=== PATIENT | female | born 1985 | race Caucasian/White ===

== ENCOUNTER 2016-03-10 07:41 | Emergency (ER) | payer OTHER ==
[~2016-03-10] VITALS: Ht 162.6 cm; Wt 91.8 kg
[~2016-03-10 07:41] MED LIST: AUGMENTIN875 MG PO; AZO CRANBERRY1 EACH PO; CIPRO500 MG PO; CRANBERRY500 M3 PO; MOTRIN800 MG PO; NORCO 5/3251 TABLET PO; PYRIDIUM100 MG PO; TORADOL10 MG PO
[2016-03-10 09:45] LABS: ADD MIUA? YES; BILIRUBIN NEGATIVE; BLOOD NEGATIVE; COLOR YELLOW ((YELLOW)); GLUCOSE (STRIP) NEGATIVE; KETONES NEGATIVE; LEUKOCYTES SMALL; NITRITE NEGATIVE; PROTEIN (STRIP) NEGATIVE; SPECIFIC GRAVITY 1.024 (1.000-1.030); UROBILINOGEN 0.2 MG/DL (0.2-1.0)
[2016-03-10 10:24] LABS: BACTERIA 1+; CASTS NONE SEEN /LPF; CRYSTALS NONE SEEN; EPITHELIAL CELLS 2+; MUCUS 2+; RED BLOOD CELLS 0-5 /HPF (0-5); UCUL ADDED? NO; WHITE BLOOD CELLS 0-5 /HPF (0-5)
[2016-03-10] MEDS ORDERED: FIORICET WI1 CAPSULE PO (10:34)
[2016-03-10 10:46] VITALS: BP 118/74
== END 2016-03-10 10:48 | disposition home or self-care (01) ==
LOC: EME 07:41
PROVIDERS: Emergency Medicine
DX: G43.909 Migraine, unspecified, not intractable, without status migrainosus (principal); F17.200 Nicotine dependence, unspecified, uncomplicated; Z87.440 Personal history of urinary (tract) infections
CPT/HCPCS: 81003; 99281; 99284; J1885; J2765; J7030

== ENCOUNTER 2016-05-29 12:20 | Emergency (ER) | payer OTHER ==
[~2016-05-29] VITALS: Ht 162.6 cm; Wt 86.0 kg
[~2016-05-29 12:20] MED LIST changes: +FIORICET WI1 CAPSULE PO
[2016-05-29 14:52] LABS: ADD MIUA? YES; BILIRUBIN NEGATIVE; BLOOD MODERATE; COLOR YELLOW ((YELLOW)); GLUCOSE (STRIP) NEGATIVE; KETONES NEGATIVE; LEUKOCYTES TRACE; NITRITE NEGATIVE; PROTEIN (STRIP) NEGATIVE; SPECIFIC GRAVITY 1.016 (1.000-1.030); UROBILINOGEN 0.2 MG/DL (0.2-1.0)
[2016-05-29 14:59] LABS: BACTERIA 2+ /HPF; EPITHELIAL CELLS RARE /HPF; MUCUS 1+ /LPF; RED BLOOD CELLS 0-5 /HPF (0-5); UCUL ADDED? YES
[2016-05-29] MEDS ORDERED: CIPRO250 MG PO (15:01)
[2016-05-29 15:14] VITALS: BP 136/94
== END 2016-05-29 15:14 | disposition home or self-care (01) ==
LOC: EME 12:20
PROVIDERS: Nurse Practitioner Family
DX: H10.9 Unspecified conjunctivitis (principal); N39.0 Urinary tract infection, site not specified; F17.200 Nicotine dependence, unspecified, uncomplicated
CPT/HCPCS: 81003; 87077; 87086; 87186; 99281; 99284

== ENCOUNTER 2016-07-14 09:55 | Emergency (ER) | payer OTHER ==
[~2016-07-14] VITALS: Ht 162.6 cm; Wt 81.5 kg
[~2016-07-14 09:55] MED LIST changes: +CIPRO250 MG PO
[2016-07-14] MEDS ORDERED: D-MANNOSE (11:05)
[2016-07-14] MEDS ORDERED: MOTRIN400 MG PO (11:06)
[2016-07-14 11:10] LABS: ADD MIUA? YES; BILIRUBIN NEGATIVE; BLOOD NEGATIVE; COLOR YELLOW ((YELLOW)); GLUCOSE (STRIP) NEGATIVE; KETONES NEGATIVE; LEUKOCYTES MODERATE; NITRITE NEGATIVE; PROTEIN (STRIP) NEGATIVE; SPECIFIC GRAVITY 1.011 (1.000-1.030); UROBILINOGEN 0.2 MG/DL (0.2-1.0)
[2016-07-14 11:36] LABS: HEMATOCRIT 43.8 % (36.0-46.0); MCH 29.7 PG (29.0-34.0); MCHC 33.1 G/DL (30.0-36.0); MCV 89.6 FL (83-99); MEAN PLAT.VOLUME 9.5 uM^3 (9.5-12.4); PLATELET COUNT 209 K/uL (156-360); RBC DIS.WIDTH-CV 13.4 % (11.8-14.6); RED BLOOD COUNT 4.89 M/uL (3.80-5.20); WHITE BLOOD COUNT 10.1 K/uL (4.1-10.2)
[2016-07-14 11:41] LABS: BACTERIA 2+ /HPF; EPITHELIAL CELLS 3+ /HPF; MUCUS 2+ /LPF; UCUL ADDED? NO; WHITE BLOOD CELLS 0-5 /HPF (0-5)
[2016-07-14 11:51] LABS: CHLORIDE 109 mEq/L (99-109); POTASSIUM 4.8 mEq/L (3.7-5.4); SODIUM 141 mEq/L (136-147)
[2016-07-14 11:52] LABS: GLUCOSE 99 mg/dL (70-99)
[2016-07-14 11:54] LABS: ANION GAP 9 MEQ/L (2-14)
[2016-07-14 11:56] LABS: GFR ESTIMATE (CALCULATED) > 59 mL/min/
[2016-07-14 11:57] LABS: UREA NITROGEN (BUN) 19 mg/dL (9-23)
[2016-07-14 12:04] LABS: QUANTITATIVE HCG < 4.0 MIU/ML
[2016-07-14] MEDS ORDERED: VANTIN100 MG PO (12:21)
[2016-07-14 12:56] VITALS: BP 120/90
== END 2016-07-14 12:57 | disposition home or self-care (01) ==
LOC: EME 09:55
DX: N39.0 Urinary tract infection, site not specified (principal); Z87.440 Personal history of urinary (tract) infections; F17.200 Nicotine dependence, unspecified, uncomplicated
CPT/HCPCS: 80048; 81003; 84702; 85027; 99281; 99284; J0696